=== PATIENT | female | born 1925 | race Caucasian/White ===

== ENCOUNTER → 2016-09-13 | Outpatient (CLI) | payer OTHER, MEDICARE ==
[2016-09-13 10:57] LABS: ALT/SGPT 22 U/L (12-78); AST/SGOT 15 U/L (15-37); BLOOD UREA NITROGEN 14 mg/dl (7-18); BUN/CREATININE RATIO 17.6 (10-20); CALCIUM 9.1 mg/dl (8.5-10.1); CARBON DIOXIDE 25 mmol/L (21-32); CHLORIDE 106 mmol/L (98-107); CHOLESTEROL 138 mg/dl (0-200); CREATININE 0.82 mg/dl (0.60-1.20); GLUCOSE 95 mg/dl (70-99); SODIUM 141 mmol/L (136-145)
[2016-09-13 11:08] LABS: ALB/GLOB RATIO 1.1 (0.9-2); ALKALINE PHOSPHATASE 77 U/L (45-117); CHOLESTEROL/HDL RATIO 1.7; HDL CHOLESTEROL 79 mg/dl; LDL CHOLESTEROL CALCULATED 48 mg/dl; TRIGLYCERIDES 54 mg/dl (0-150); VERY LOW DENSITY LIPOPROT CALC 11 mg/dl
== END | disposition home or self-care (01) ==
LOC: C.LABFOXMH 08:47
PROVIDERS: ATTEND Internal Medicine
DX: E78.00 Pure hypercholesterolemia, unspecified (principal)